=== PATIENT | male | born 1950 | race Asian ===

== ENCOUNTER 2017-08-05 15:37 | Outpatient (CLI) | payer MEDICARE ==
[2017-08-05 15:51] LABS: BASOPHILS # (AUTO) 0.1 10^3/uL (0.0-0.1); BASOPHILS % (AUTO) 0.7 %; EOSINOPHILS # (AUTO) 0.1 10^3/uL (0.0-0.7); EOSINOPHILS % (AUTO) 1.2 %; HGB - HEMOGLOBIN 12.3 g/dL (14.0-18.0); LYMPHOCYTES # (AUTO) 2.2 10^3/uL (1.5-3.5); LYMPHOCYTES % (AUTO) 27.1 %; MEAN CORPUSCULAR HEMOGLOBIN 28.1 pg (27.0-31.0); MEAN CORPUSCULAR HGB CONC 33.1 g/dL (32.0-36.0); MEAN CORPUSCULAR VOLUME 84.6 fL (80.0-94.0); MEAN PLATELET VOLUME 7.1 fL (7.4-11.4); MONOCYTES # (AUTO) 0.5 10^3/uL (0.0-1.0); MONOCYTES % (AUTO) 6.1 %; NEUTROPHILS # (AUTO) 5.3 10^3/uL (1.5-6.6); NEUTROPHILS % (AUTO) 64.9 %; PLT - PLATELET COUNT 255 10^3/uL (130-450); RED BLOOD COUNT 4.37 10^6/uL (4.70-6.10); RED CELL DISTRIBUTION WIDTH 15.3 % (12.0-15.0); WHITE BLOOD COUNT 8.2 x10^3/uL (4.8-10.8)
[2017-08-05 16:06] LABS: ALBUMIN 4.1 g/dL (3.2-5.5); ALBUMIN/GLOBULIN RATIO 1.4 (1.0-2.2); BILIRUBIN,TOTAL 0.8 mg/dL (0.2-1.0); CALCIUM 9.9 mg/dL (8.5-10.3); CREATININE 0.9 mg/dL (0.6-1.2)
== END 2017-08-05 15:38 | disposition home or self-care (01) ==
LOC: LAB 15:37
PROVIDERS: ATTEND Internal Medicine Hematology & Oncology
DX: C61 Malignant neoplasm of prostate (principal)
CPT/HCPCS: 36415; 80053; 84153; 85025

== ENCOUNTER 2018-01-31 13:09 | Outpatient (CLI) | payer MEDICARE | END 2018-01-31 13:10 | disposition home or self-care (01) | LOC: RT 13:09 | PROVIDERS: ATTEND Urology | DX: N40.0 Benign prostatic hyperplasia without lower urinary tract symptoms (principal); R33.9 Retention of urine, unspecified | CPT/HCPCS: 93005 ==

== ENCOUNTER 2018-04-10 13:53 | Outpatient (CLI) | payer MEDICARE ==
[2018-04-10 14:25] LABS: BASOPHILS % (AUTO) 0.7 %; EOSINOPHILS % (AUTO) 0.2 %; HGB - HEMOGLOBIN 9.1 g/dL (14.0-18.0); LYMPHOCYTES % (AUTO) 67.1 %; MEAN CORPUSCULAR HEMOGLOBIN 27.2 pg (27.0-31.0); MEAN CORPUSCULAR HGB CONC 33.3 g/dL (32.0-36.0); MEAN CORPUSCULAR VOLUME 81.7 fL (80.0-94.0); MEAN PLATELET VOLUME 6.5 fL (7.4-11.4); MONOCYTES # (AUTO) 0.6 10^3/uL (0.0-1.0); MONOCYTES % (AUTO) 19.9 %; NEUTROPHILS % (AUTO) 12.1 %; PLT - PLATELET COUNT 102 10^3/uL (130-450); RED BLOOD COUNT 3.36 10^6/uL (4.70-6.10); RED CELL DISTRIBUTION WIDTH 17.9 % (12.0-15.0); WHITE BLOOD COUNT 2.9 x10^3/uL (4.8-10.8)
[2018-04-10 16:41] LABS: NEUTROPHILS # (AUTO) 0.4 10^3/uL (1.5-6.6)
== END 2018-04-10 13:54 | disposition home or self-care (01) ==
LOC: LAB 13:53
PROVIDERS: ATTEND Nurse Practitioner Gerontology
DX: C61 Malignant neoplasm of prostate (principal)
CPT/HCPCS: 36415; 85025

== ENCOUNTER 2018-05-29 07:29 | Outpatient (CLI) | payer MEDICARE ==
[2018-05-29] MEDS ORDERED: IOVERSOL 320 100 ML VIAL IVP ONE ×2 (07:50→09:37)
[2018-05-29] MEDS ORDERED: IOPAMIDOL-300 50 ML VIAL ONE (07:51)
[2018-05-29] MEDS ORDERED: IOVERSOL 320 50 ML VIAL PO ONE (09:37)
--- NOTE | 2018-05-29 14:49 | CT Report ---
Reason: MALIGNANT NEOPLASM OF PROSTATE Procedure Date: 05/29/2018 Accession Number: [id number] / [id number] Procedure: CT - Abdomen/Pelvis W CPT Code: FULL RESULT: EXAM: CT ABDOMEN AND PELVIS EXAM DATE: 05/29/2018 09:20 AM. CLINICAL HISTORY: Malignant neoplasm of prostate. COMPARISONS: BONE SCAN 05/29/2018 11:50 AM. TECHNIQUE: Routine helical CT imaging was performed through the abdomen and pelvis. IV contrast: 100 mL Optiray 320. Enteric contrast: Yes. Reconstructions: Coronal and sagittal. In accordance with CT protocol optimization, one or more of the following dose reduction techniques were utilized for this exam: automated exposure control, adjustment of mA and/or KV based on patient size, or use of iterative reconstructive technique. FINDINGS: Lung Bases: See CT chest reported separately. Liver: Subcentimeter right lobe hepatic hypodensities too small to characterize. Gallbladder/Bile Ducts: Unremarkable. Spleen: Normal. Pancreas: Essentially fatty replaced. Adrenal Glands: Marked symmetric bilateral adrenal thickening without definite separate discrete nodule. Kidneys: Normal. No masses or hydronephrosis. Peritoneal Cavity/Bowel: Retroperitoneal lymphadenopathy continues from the pelvis along the aorta, for example at the pelvic inlet image 52 series 5, 1.0 x 1.4 cm, at the level of the renal arteries a 2.0 x 1.3 cm [employer] on image 35. No bowel obstruction or free air or free fluid. Pelvic Organs: Enlarged irregular-appearing prostate with heterogeneous enhancement lifting the bladder base. Indistinct margins to the surrounding ischioanal fossa fat without definite invasion, CT is not very sensitive for this. There is left iliac chain bulky adenopathy, best demonstrated on sagittal image 29 series 16 and individual electronics parts sales representative lymph node image 64 series 5 measures 1.9 x 1.4 cm. Vasculature: Mild atherosclerotic disease without aneurysm. Bones: Diffuse sclerotic foci are seen throughout the appendicular and axial skeleton, osseous metastatic disease. Please note that the sclerotic lesion in the left intertrochanteric region measures 3.4 x 2.4 cm and corresponds to marked uptake on the bone scan. Retrolisthesis of approximately 5 mm of L3 on L4 in the setting of diffuse metastatic disease without evidence of pathologic fracture at this time. Other: None. IMPRESSION: Pelvic and abdominal retroperitoneal lymphadenopathy, extensive. Marked bilateral symmetric adrenal thickening, possibly metabolic response/treatment related. Osseous metastatic disease, better seen on bone scan. Recommendation: If the patient has focal pain in the left hip region, recommend consideration for orthopedic evaluation for potential need for prophylactic intervention. RADIA
--- NOTE | 2018-05-29 14:49 | CT Report ---
Reason: MALIGNANT NEOPLASM OF PROSTATE Procedure Date: 05/29/2018 Accession Number: [id number] / [id number] Procedure: CT - CHEST W CPT Code: FULL RESULT: EXAM: CT CHEST EXAM DATE: 05/29/2018 09:20 AM. CLINICAL HISTORY: MALIGNANT NEOPLASM OF PROSTATE. COMPARISONS: BONE SCAN 05/29/2018 11:50 AM. TECHNIQUE: Routine helical CT imaging was performed through the chest. IV contrast: 100 mL Optiray 320. Reconstructions: Coronal and sagittal. In accordance with CT protocol optimization, one or more of the following dose reduction techniques were utilized for this exam: automated exposure control, adjustment of mA and/or KV based on patient size, or use of iterative reconstructive technique. FINDINGS: Lungs/Pleura: There is a large right pleural effusion. Small left pleural effusion. There is pulmonary edema. At least moderate upper lobe predominant emphysema is noted. No pulmonary mass or suspicious nodules are seen. No pneumothorax. Mediastinum: There is mediastinal lymphadenopathy pretracheally and in the AP window, image 31 series 3, up to 0.8 cm in short axis. No pericardial effusion. Great vessels are within normal limits. Bones: Diffuse osseous metastatic disease. Please note that the markedly increased uptake along the inferior sternum on bone scan corresponds to a metastatic focus with cortical breakthrough and soft tissue component by CT. Visualized Abdomen: See separate report. Other: No definite supraclavicular or axillary lymphadenopathy. IMPRESSION: Large right pleural effusion and small left pleural effusion. Mediastinal lymphadenopathy as described. Osseous metastatic disease. RADIA
--- NOTE | 2018-05-29 16:20 | Nuclear Medicine Report ---
Reason: MALIGNANT NEOPLASM OF PROSTATE Procedure Date: 05/29/2018 Accession Number: [id number] / [id number] Procedure: NM - Bone Whole Body CPT Code: FULL RESULT: EXAM: BONE SCAN EXAM DATE: 05/29/2018 12:57 PM. CLINICAL HISTORY: MALIGNANT NEOPLASM OF PROSTATE. COMPARISON: ABDOMEN/PELVIS W05/29/2018 9:06 AM CHEST W05/29/2018 9:06 AM. TECHNIQUE: Following the intravenous administration of 30.3 mCi of technetium 99m MDP and an appropriate delay, a whole-body scan was performed in anterior and posterior projections. Site-specific spot views of the region of interest were obtained in various projections. FINDINGS: Faint renal radiotracer uptake and bladder activity Soft tissue activity is diminished relative to osseous uptake, consistent with superscan. There is heterogeneous diffusely abnormal osseous uptake involving the axial, proximal appendicular, and to a lesser degree the distal appendicular skeleton. There is evidence of diffuse osseous metastatic disease by CT. IMPRESSION: 1. Diffuse osseous metastatic disease. RADIA
== END 2018-05-29 07:30 | disposition home or self-care (01) ==
LOC: DI 07:29
PROVIDERS: ATTEND Nurse Practitioner Gerontology
DX: C61 Malignant neoplasm of prostate (principal); C79.51 Secondary malignant neoplasm of bone; J90 Pleural effusion, not elsewhere classified; R59.0 Localized enlarged lymph nodes
CPT/HCPCS: 71260; 74177; 78306; Q9967